=== PATIENT | female | born 1975 | race Caucasian/White ===

== ENCOUNTER 2022-06-09 06:37 | Outpatient (CLI) | payer BC, SELFPAY ==
--- NOTE | 2022-06-09 06:53 | CT_ITS ---
WS: [id number] CT NECK TECHNIQUE: Contrast-enhanced CT of the neck with coronal and sagittal reformatted images. CLINICAL INFORMATION: OTALGIA, LEFT EAR, TINNITUS LEFT EAR, CERVICALG DLP: 200.[address] scans at [facility] use at least one of these dose optimization techniques: automated e xposure control; mA and/or kV adjustment per patient size (includes targeted exams where dose is matc hed to clinical indication); or iterative reconstruction. FINDINGS: Paranasal sinuses are well aerated. Mastoid air cells well aerated. Parotid glands are normal. Subman dibular glands are normal. Normal posterior nasopharynx. Normal parapharyngeal fat. No evidence of cox praglottic or glottic mass. Normal subglottic airway. Lung apices are well aerated. Somewhat hypoplastic thyroid gland for patient this age, otherwise norm al in appearance. Straightening with reversal normal cervical lordosis. ACDF C5-C7. Interbody fusion C3-C4. Slight anterolisthesis C3 on C4. No cervical lymphadenopathy. Middle ears are well aerated venus aterally. CT/CT neck w con* [id number] IMPRESSION: 1. Mastoid air cells and middle ears are well aerated bilaterally. 2. Paranasal sinuses are well aerated. 3. No evidence of supraglottic or glottic mass. 4. No cervical lymphadenopathy. 5. Somewhat small volume thyroid gland for patient this age but otherwise norm al in appearance.Correlation with thyroid function studies. 6. Prior postoperative changes cervical spine as described above. 7. Normal salivary glands.
[2022-06-09] MEDS: iohexol 350 mg/mL 500 mL Btl (per mL) IV (07:10)
== END 2022-06-09 06:38 | disposition home or self-care (01) ==
LOC: RAD 06:45
PROVIDERS: PCP Family Medicine; Visit Provider Otolaryngology
DX: H92.02 Otalgia, left ear (principal); H93.12 Tinnitus, left ear; M54.2 Cervicalgia
CPT/HCPCS: 70491; Q9967